=== PATIENT | female | born 1960 | race Caucasian/White ===

== ENCOUNTER 2016-11-26 16:38 | Emergency (ER) | payer OTHER ==
[~2016-11-26] VITALS: Ht 170.2 cm; Wt 111.1 kg
[~2016-11-26 16:38] MED LIST: LYRICA 100 MG100 MG PO; OXYCODONE HCL20 MG PO; OXYCODONE SR 2020 MG PO
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
[2016-11-26] MEDS ORDERED: KEFLEX 500MG.500 MG PO (17:33)
[2016-11-26] MEDS ORDERED: SILVADENE CR 2020 GM TP (17:33)
[2016-11-26 17:43] VITALS: BP 116/82
== END 2016-11-26 17:43 | disposition home or self-care (01) ==
LOC: UTC 16:38
DX: T21.41XA Corrosion of unspecified degree of chest wall, initial encounter (principal); Y92.009 Unspecified place in unspecified non-institutional (private) residence as the place of occurrence of the external cause